=== PATIENT | male | born 1985 | race Caucasian/White ===

== ENCOUNTER 2017-03-22 14:57 | Emergency (ER) | payer OTHER ==
--- NOTE | ~2017-03-22 | CR173 ---
[facility] A Service of [facility] & [facility] RADIOLOGY TEXT RESULTS PATIENT: ALLY TAYLOR LOCATION: CFTX : 89 UNIT #: [id number] AGE: [address]: Cherry Maloney SEX: M ORDER DR: [id number] [facility] [address] [place], [place] [address] [id number] E MR#: [id number] Acc #: [id number] NAME: ALLY TAYLOR : 1985 SEX: M STUDY DATE/TIME: 03/22/2017 15:26 UNIT: [facility] ROOM: STUDY DESCRIPTION: CR Knee 3 Views Rt Attending Physician: Cherry Maloney P.A.-C. Ordering Physician: Cherry Maloney P.A.-C. Primary Care Physician: Primary Care Physician No MEDICAL IMAGING REPORT This report is preliminary unless electronic signature is present EXAM Right knee HISTORY Right knee pain after falling at work yesterday. TECHNIQUE Three views of the right knee were obtained. FINDINGS AP and lateral projection of the knee shows smooth articular anatomy without indication of fracture or dislocation at the major weight-bearing surface of the knee. There is no indication of radiopaque foreign body about the knee surface or joint effusion. IMPRESSION Normal knee. Dictated by... Denver Aaron M.D. THIS IS AN ELECTRONICALLY VERIFIED REPORT Denver Aaron M.D. at 03/23/2017 6:47 AM NANCY/mis TD: 03/22/2017 20:32 JOB #: [id number] MEDICAL IMAGING REPORT Page 1 of 1 COPY
--- NOTE | ~2017-03-22 | CR21 ---
[facility] A Service of [facility] & [facility] RADIOLOGY TEXT RESULTS PATIENT: ALLY TAYLOR LOCATION: CFTX : 87 UNIT #: [id number] AGE: [address]: Cherry Maloney SEX: M ORDER DR: [id number] [facility] [address] [place], [place] [address] [id number] E MR#: [id number] Acc #: [id number] NAME: ALLY TAYLOR : 1985 SEX: M STUDY DATE/TIME: 03/22/2017 15:22 UNIT: [facility] ROOM: STUDY DESCRIPTION: CR Ankle Min 3 Views Rt Attending Physician: Cherry Maloney P.A.-C. Ordering Physician: Cherry Maloney P.A.-C. Primary Care Physician: Primary Care Physician No MEDICAL IMAGING REPORT This report is preliminary unless electronic signature is present EXAM Right ankle, 3 views HISTORY Pain and swelling in right ankle since yesterday, fell at work. FINDINGS AP, lateral, and oblique projections of the ankle show satisfactory integrity of the joint mortise with a smooth articular surface. There is no identifiable fracture, dislocation, or radiopaque foreign body. IMPRESSION Normal ankle. Dictated by... Isadora Silva M.D. THIS IS AN ELECTRONICALLY VERIFIED REPORT Isadora Silva M.D. at 03/24/2017 7:28 AM DALIA/mis TD: 03/22/2017 20:30 JOB #: [id number] MEDICAL IMAGING REPORT Page 1 of 1 COPY
--- NOTE | ~2017-03-22 | CR127 ---
[facility] A Service of [facility] & [facility] RADIOLOGY TEXT RESULTS PATIENT: ALLY TAYLOR LOCATION: CFTX : 87 UNIT #: [id number] AGE: [address]: Cherry Maloney SEX: M ORDER DR: [id number] [facility] [address] [place], [place] [address] [id number] E MR#: [id number] Acc #: [id number] NAME: ALLY TAYLOR : 1985 SEX: M STUDY DATE/TIME: 03/22/2017 15:24 UNIT: [facility] ROOM: STUDY DESCRIPTION: CR Foot Complete Min 3 View Rt Attending Physician: Cherry Maloney P.A.-C. Ordering Physician: Cherry Maloney P.A.-C. Primary Care Physician: No Primary Care Physician MEDICAL IMAGING REPORT This report is preliminary unless electronic signature is present EXAM Right foot. HISTORY Right foot pain after falling at work. TECHNIQUE Three views of the right foot were obtained. FINDINGS The tarsal, metatarsal, and phalangeal elements are all anatomically normal in position and alignment. There are no articular defects. No fractures or radiopaque foreign bodies in the soft tissues are apparent. IMPRESSION Normal right foot. Dictated by... Denver Aaron M.D. THIS IS AN ELECTRONICALLY VERIFIED REPORT Denver Aaron M.D. at 03/23/2017 6:47 AM NANCY/jai TD: 03/22/2017 20:38 JOB #: [id number] MEDICAL IMAGING REPORT Page 1 of 1 COPY
--- NOTE | ~2017-03-22 | CR151 ---
[facility] A Service of [facility] & [facility] RADIOLOGY TEXT RESULTS PATIENT: ALLY TAYLOR LOCATION: CFTX : 89 UNIT #: [id number] AGE: [address]: Cherry Maloney SEX: M ORDER DR: [id number] [facility] [address] [place], [place] [address] [id number] E MR#: [id number] Acc #: [id number] NAME: ALLY TAYLOR : 1985 SEX: M STUDY DATE/TIME: 03/22/2017 15:31 UNIT: [facility] ROOM: STUDY DESCRIPTION: CR Hip Min 2 Views Rt Attending Physician: Cherry Maloney P.A.-C. Ordering Physician: Cherry Maloney P.A.-C. Primary Care Physician: Primary Care Physician No MEDICAL IMAGING REPORT This report is preliminary unless electronic signature is present EXAM Right hip HISTORY Right hip pain after falling at work yesterday TECHNIQUE 2 views of the hip were obtained FINDINGS Mild dysplasia is seen in both hips with flattening of the femoral head superiorly on each side and small subchondral cysts noted at the junction of the femoral head and neck bilaterally. There is no evidence of fracture, bone destruction or osteochondral fragment. No acute bony abnormalities are seen. 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 No acute findings. Dictated by... Denver Aaron M.D. THIS IS AN ELECTRONICALLY VERIFIED REPORT Denver Aaron M.D. at 03/23/2017 6:47 AM RLF/armand TD: 03/22/2017 20:31 JOB #: [id number] MEDICAL IMAGING REPORT Page 1 of 1 COPY
== END 2017-03-22 16:37 | disposition home or self-care (01) ==
LOC: CFTX 14:57 → CED 14:57 → CFTX 15:40
DX: S93.491A Sprain of other ligament of right ankle, initial encounter (principal); S93.401A Sprain of unspecified ligament of right ankle, initial encounter; F17.210 Nicotine dependence, cigarettes, uncomplicated; X50.1XXA Overexertion from prolonged static or awkward postures, initial encounter; Y92.69 Other specified industrial and construction area as the place of occurrence of the external cause
CPT/HCPCS: 29515; 73502; 73562; 73610; 73630; 99283

== ENCOUNTER 2017-04-13 19:22 | Emergency (ER) | payer SELFPAY ==
[~2017-04-13] VITALS: Ht 182.9 cm; Wt 90.7 kg
== END 2017-04-13 21:17 | disposition home or self-care (01) ==
LOC: CED 19:22
DX: S61.216A Laceration without foreign body of right little finger without damage to nail, initial encounter (principal); F41.9 Anxiety disorder, unspecified; F17.210 Nicotine dependence, cigarettes, uncomplicated; W25.XXXA Contact with sharp glass, initial encounter; Y92.9 Unspecified place or not applicable
CPT/HCPCS: 96374; 99283; J1885